=== PATIENT | male | born 2000 | race Caucasian/White ===

== ENCOUNTER 2021-01-27 06:33 | Emergency (ER) | payer OTHER ==
[~2021-01-27] VITALS: Ht 190.5 cm; Wt 72.6 kg
--- NOTE | ~2021-01-27 | EMS ---
[address] [address] EMS Patient Care Report Name: TORY BETHEA Room #: DEP EMMANUEL Metcalf#: [id number] Admission: 01/27/21 Attend Phys: Discharge: 01/27/21 Date of : 89 Report #: [id number] THIS REPORT FOR: //name// Report Transmitted: 01/29/2021 09:45 EMS Care Summary [place], [place]/[facility] Incident [id number] @ 01/27/2021 06:20 Incident Location [address] Patient TORY BETHEA Male, 20 Years 2000 Patient Address [address] [address] Patient History Diabetes, Patient Allergies No known allergies, Patient Medications Insulin, Chief Complaint ALTERED MENTAL STATUS Disposition Transported No Lights/[place] Dispatch Reason Unconscious/Fainting Transported To [facility] Narrative M41 WAS DISPATCHED TO A SINGLE STORY BUILDING FOR AN UNCONSCIOUS. UPON ARRIVAL PATIENT WAS SITTING IN THE MAIN LOBBY. THE NURSE AT [facility] INFORMED EMS THAT THE PATIENT IS A TYPE 1 DIABETIC AND WAS ACTING ABNORMAL THIS MORINING. PATIENT HAD A BLOOD GLUCOSE OF 45. PATIENT DRANK A COKE AND HAD SOME FOOD AND THEN EMS GOT A BLOOD SUGAR OF 124. [address] [address] EMS Patient Care Report Name: TORY BETHEA Room #: DEP ER Tea#: [id number] Admission: 01/27/21 Attend Phys: Discharge: 01/27/21 Date of : [birth year] Report #: [id number] PATIENT WAS ALERT BUT CONFUSED. PATIENT WAS THEN ASSISTED TO THE AMBULANCE WALKING WITH EMS. PATIENT WAS PLACED ON THE STRETCHER AND BUCKLED IN AND GATHERED VITALS. PATIENT WAS TRANSPORTED IN THE [place] POSITTION AND REMAINED STABLE. REPORT WAS GIVEN TO RN AT [facility] IN SERVICE. RENETTA RIVERA EMTB Initial Vitals @06:28P: 100,R: 16,BP: 121/61,SpO2: 97, @06:21P: 105,R: 16,BP: 119/82,Pain: 0/10,GCS: 14,Glucose: 126,SpO2: 96,Revised Trauma: 12, Assessments @06:23MENTAL:Time Oriented,Place Oriented,Event Oriented,Confused,SKIN:HEENT:Head/Face: No Abnormalities,Neck/Airway: No Abnormalities,LUNG SOUNDS:General: No Abnormalities,Left Upper: No Abnormalities,Right Upper: No Abnormalities,Left Lower: No Abnormalities,Right Lower: No Abnormalities,ABDOMEN:General: No Abnormalities,Left Upper: No Abnormalities,Right Upper: No Abnormalities,Left Lower: No Abnormalities,Right Lower: No Abnormalities,PELVIS//GI:No Abnormalities,EXTREMITIES:Capillary Refill: Left Upper: < 2 Sec,Left Arm: No Abnormalities,Right Arm: No Abnormalities,Left Leg: No Abnormalities,Right Leg: No Abnormalities,PULSE:Radial: 2+ Normal,NEURO:No Abnormalities, Impression Diabetic Hypoglycemia Procedures @06:20BLS AssessmentResponse: Unchanged@06:20ALS AssessmentResponse: UnchangedSucceeded Timeline 05:54,Call Received 05:54,Dispatch Notified 06:20,Dispatched 06:20,En Route 06:20,On Scene 06:20,At Patient [facility] [address] [place] [address] EMS Patient Care Report Name: TORY BETHEA Room #: DEP EMMANUEL Metcalf#: [id number] Admission: 01/27/21 Attend Phys: Discharge: 01/27/21 Date of : 89 Report #: [id number] 06:20,BLS Assessment,Response: Unchanged 06:20,ALS Assessment,Response: UnchangedSucceeded, 06:20,Depart Scene 06:21,BP: 119/82 M,PULSE: 105,RR: 16 R,SPO2: 96 Ox,ETCO2: ,B,PAIN: 0,GCS: 14, 06:28,BP: 121/61 M,PULSE: 100,RR: 16 R,SPO2: 97 Ox,ETCO2: ,BG: ,PAIN: ,GCS: , 06:36,At Destination 06:52,Call Closed Disclaimer v1.1 Copyright 2020 [employer] This EMS Care Summary contains data elements from the applicable legal record (which may be displayed differently). It is designed to provide pertinent information for the following purposes: continuity of care, clinical quality, and state data reporting. The complete legal record is available to ED staff and administrators of the receiving hospital in [facility]'s Patient Tracker. All data is provided "as is."
[2021-01-27 07:27] LABS: ABSOLUTE NEUTROPHILS 1.9 thou/uL (1.4-8.2); BASOPHILS 0.6 % (0.0-2.0); EOSINOPHILS 2.5 % (0.0-3.0); HEMATOCRIT 42.4 % (42.0-52.0); HEMOGLOBIN 14.4 gm/dL (14.0-18.0); LYMPHOCYTES 53.5 % (24.0-44.0); MCH 33.3 pg (26.0-34.0); MCV 98.1 fL (80.0-100.0); MONOCYTES 5.5 % (1.0-8.0); PLATELET COUNT 289 thou/uL (150-400); POLYS 37.9 % (36.0-66.0); RBC 4.32 mil/uL (4.50-6.00); RDW 13.8 % (10.5-14.5); WBC 4.9 thou/uL (4.0-11.0)
[2021-01-27 07:35] LABS: CALCIUM 8.6 mg/dL (8.5-10.1); CREATININE 0.9 mg/dL (0.7-1.3); POTASSIUM 4.6 mmol/L (3.5-5.1)
[2021-01-27 09:02] VITALS: BP 142/79
== END 2021-01-27 10:30 | disposition home or self-care (01) ==
LOC: ER 06:33
PROVIDERS: Emergency Medicine
DX: E11.649 Type 2 diabetes mellitus with hypoglycemia without coma (principal); Z77.22 Contact with and (suspected) exposure to environmental tobacco smoke (acute) (chronic)